=== PATIENT | male | born 1945 | race Two or more races ===

== ENCOUNTER 2017-08-25 12:06 | Emergency (ER) | payer OTHER ==
[~2017-08-25] VITALS: Ht 170.2 cm; Wt 72.6 kg
[2017-08-25] MEDS ORDERED: TAMS0.4C (12:47)
[2017-08-25] MEDS ORDERED: COUMADIN4 MG (12:47)
[2017-08-25] MEDS ORDERED: ZESTRIL5 MG (12:47)
[2017-08-25] MEDS ORDERED: ATORVASTATIN CA10 MG (12:48)
[2017-08-25] MEDS ORDERED: ULTRACET PO (17:57)
[2017-08-25] MEDS ORDERED: CELEBREX100 MG PO (17:57)
== END 2017-08-25 18:46 | disposition home or self-care (01) ==
LOC: ER 12:06
DX: S82.52XA Displaced fracture of medial malleolus of left tibia, initial encounter for closed fracture (principal); S90.02XA Contusion of left ankle, initial encounter; V03.00XA Pedestrian on foot injured in collision with car, pick-up truck or van in nontraffic accident, initial encounter; Y93.01 Activity, walking, marching and hiking; Y92.89 Other specified places as the place of occurrence of the external cause; Y99.8 Other external cause status

== ENCOUNTER → 2017-08-31 | Outpatient (CLI) | payer OTHER ==
[~2017-08-31] MED LIST: ATORVASTATIN CA10 MG; CELEBREX100 MG PO; COUMADIN4 MG; TAMS0.4C; ULTRACET PO; ZESTRIL5 MG
== END | disposition home or self-care (01) ==
LOC: RAD 10:45
DX: Z01.811 Encounter for preprocedural respiratory examination (principal)

== ENCOUNTER 2017-10-28 10:16 | Outpatient (CLI) | payer OTHER | END 2017-10-28 10:36 | disposition home or self-care (01) | LOC: SONOGRAMA 10:16 | DX: N40.1 Benign prostatic hyperplasia with lower urinary tract symptoms (principal) ==

== ENCOUNTER 2018-11-22 09:21 | Outpatient (CLI) | payer OTHER | END 2018-11-22 09:35 | disposition home or self-care (01) | LOC: TOM 09:21 | DX: I63.89 Other cerebral infarction (principal) ==

== ENCOUNTER 2019-03-26 08:38 | Outpatient (CLI) | payer OTHER | END 2019-03-26 10:51 | disposition home or self-care (01) | LOC: SONOGRAMA 08:38 | DX: R10.84 Generalized abdominal pain (principal); R31.29 Other microscopic hematuria ==

== ENCOUNTER → 2019-10-31 | Emergency (ER) | payer OTHER | END | disposition left against medical advice (07) | LOC: ER 12:39 | DX: Z53.20 Procedure and treatment not carried out because of patient's decision for unspecified reasons (principal) ==

== ENCOUNTER 2020-01-16 08:03 | Inpatient (IN) | payer OTHER ==
[~2020-01-16] VITALS: Ht 170.2 cm; Wt 72.6 kg
== END 2020-01-17 12:32 | disposition expired | DRG 918 ==
LOC: ER 08:03 → SURH 20:46
PROVIDERS: ADMIT Internal Medicine; ATTEND Internal Medicine
PROC: 4A033R1 Measurement of Arterial Saturation, Peripheral, Percutaneous Approach (ICD-10-PCS; 2020-01-16)
PROC: 3E0F7GC Introduction of Other Therapeutic Substance into Respiratory Tract, Via Natural or Artificial Opening (ICD-10-PCS; 2020-01-16)
PROC: BW28ZZZ Computerized Tomography (CT Scan) of Head (ICD-10-PCS; 2020-01-16)
PROC: BB24ZZZ Computerized Tomography (CT Scan) of Bilateral Lungs (ICD-10-PCS; 2020-01-16)
PROC: BW2FZZZ Computerized Tomography (CT Scan) of Neck (ICD-10-PCS; 2020-01-16)
PROC: 4A12X4Z Monitoring of Cardiac Electrical Activity, External Approach (ICD-10-PCS; 2020-01-16)
PROC: 0BH17EZ Insertion of Endotracheal Airway into Trachea, Via Natural or Artificial Opening (ICD-10-PCS; principal; 2020-01-17)
PROC: 5A1935Z Respiratory Ventilation, Less than 24 Consecutive Hours (ICD-10-PCS; 2020-01-17)
DX: T45.511A Poisoning by anticoagulants, accidental (unintentional), initial encounter (principal); M79.12 Myalgia of auxiliary muscles, head and neck; I11.9 Hypertensive heart disease without heart failure; I25.10 Atherosclerotic heart disease of native coronary artery without angina pectoris; I46.9 Cardiac arrest, cause unspecified; Z95.2 Presence of prosthetic heart valve